=== PATIENT | female | born 1985 | race Caucasian/White ===

== ENCOUNTER 2020-10-03 12:07 | Emergency (ER) | payer OTHER ==
[~2020-10-03] VITALS: Ht 165.1 cm; Wt 73.5 kg
== END 2020-10-03 17:35 | disposition home or self-care (01) ==
LOC: ER 12:07
DX: O20.9 Hemorrhage in early pregnancy, unspecified (principal)

== ENCOUNTER 2022-02-16 13:15 | Outpatient (CLI) | payer OTHER | END 2022-02-16 14:25 | disposition home or self-care (01) | LOC: PRENATAL 13:15 | PROVIDERS: ATTEND Obstetrics & Gynecology Maternal & Fetal Medicine | DX: O35.3XX0 Maternal care for (suspected) damage to fetus from viral disease in mother, not applicable or unspecified (principal); O35.9XX0 Maternal care for (suspected) fetal abnormality and damage, unspecified, not applicable or unspecified; O34.219 Maternal care for unspecified type scar from previous cesarean delivery; Z3A.20 20 weeks gestation of pregnancy ==

== ENCOUNTER 2022-05-10 11:02 | Outpatient (CLI) | payer OTHER | END 2022-05-10 13:15 | disposition home or self-care (01) | LOC: PRENATAL 11:02 | PROVIDERS: ATTEND Obstetrics & Gynecology Maternal & Fetal Medicine | DX: O26.849 Uterine size-date discrepancy, unspecified trimester (principal); O36.8199 Decreased fetal movements, unspecified trimester, other fetus; O34.219 Maternal care for unspecified type scar from previous cesarean delivery; Z3A.32 32 weeks gestation of pregnancy ==